=== PATIENT | male | born 1940 | race Caucasian/White ===

== ENCOUNTER 2017-06-30 07:21 | Day surgery (SDC) | payer OTHER ==
[2017-06-30] MEDS ORDERED: TETRACAINE 0.5% OPHTH 1 DOSE AFFEYE ONE ×4 (07:30→10:55)
[2017-06-30] MEDS ORDERED: VIGAMOX 0.5% OPHTH 1 DOSE AFFEYE ONE ×5 (07:35→11:10)
[2017-06-30] MEDS ORDERED: PROLENSA OPHTH 1 DOSE AFFEYE ONE (07:46)
[2017-06-30] MEDS ORDERED: ALPHAGAN-P OPHTH 1 DOSE AFFEYE ONE (07:47)
[2017-06-30] MEDS ORDERED: CYCLOGYL 1% OPHTH 1 DOSE OP ONE ×3 (07:48→07:50)
[2017-06-30] MEDS ORDERED: AK-DILATE 2.5% OPHTH 1 DOSE OP ONE ×3 (07:48→07:50)
[2017-06-30] MEDS ORDERED: MYDRIACIL OPHTH 1 DOSE AFFEYE ONE ×3 (07:48→07:50)
[2017-06-30] MEDS ORDERED: NS 500 ML IV 500 ML IV ONE (07:48)
[2017-06-30] MEDS ORDERED: VERSED ONE (10:18)
[2017-06-30] MEDS ORDERED: DIPRIVAN VIAL ONE (10:18)
[2017-06-30] MEDS ORDERED: BETADINE OPHTH SOLN 5% EACHEYE ONE (10:33)
[2017-06-30] MEDS ORDERED: ADRENALINE CHL INJ IJ ONE ×2 (10:48→10:55)
[2017-06-30] MEDS ORDERED: XYLOCAINE-MPF 1% IJ ONE ×2 (10:49→10:55)
[2017-06-30] MEDS ORDERED: BSS OPHTH (PLAIN) 500 ML with VANCOMYCIN HCL 500 MG VIAL 25 MG, ADRENALINE CHL INJ 1 MG IR ONE ×6 (10:49)
[2017-06-30] MEDS ORDERED: DUOVISC IO ONE ×2 (10:49→10:55)
[2017-06-30 12:03] VITALS: BP 160/64
== END 2017-06-30 11:35 | disposition home or self-care (01) ==
LOC: SURG1 07:21
PROVIDERS: ATTEND Ophthalmology
PROC: 08RJ3JZ Replacement of Right Lens with Synthetic Substitute, Percutaneous Approach (ICD-10-PCS; principal; 2017-06-30 09:45)
PROC: 08DJ3ZZ Extraction of Right Lens, Percutaneous Approach (ICD-10-PCS; principal; 2017-06-30 09:45)
DX: H25.11 Age-related nuclear cataract, right eye (principal); H25.011 Cortical age-related cataract, right eye
CPT/HCPCS: 99100; A4217; J0170; J2250; J3370; J3490